=== PATIENT | female | born 2000 | race Hispanic/Latino ===

== ENCOUNTER 2022-12-28 09:27 | Emergency (ER) | payer MEDICAID, OTHER ==
[~2022-12-28] VITALS: Ht 152.4 cm; Wt 97.5 kg
[2022-12-28 09:34] VITALS: BP 154/91; PULSE 86; RESP 16; O2SAT 100
[2022-12-28] MEDS ORDERED: KETOROLAC 60 MG VIAL (30MG/ML) IM ONE (10:30)
[2022-12-28] MEDS ORDERED: CYCL5TAB PO (11:25)
[2022-12-28] MEDS ORDERED: IBUP-2070 PO (11:25)
== END 2022-12-28 11:55 | disposition home or self-care (01) ==
LOC: EDH 09:27
DX: S40.011A Contusion of right shoulder, initial encounter (principal); S09.90XA Unspecified injury of head, initial encounter; R10.9 Unspecified abdominal pain; V89.2XXA Person injured in unspecified motor-vehicle accident, traffic, initial encounter; Y93.89 Activity, other specified; Y92.89 Other specified places as the place of occurrence of the external cause; Y99.8 Other external cause status
CPT/HCPCS: 99285; 70450; 73030; 72125; 96372; J1885